=== PATIENT | male | born 1995 | race Hispanic/Latino ===

== ENCOUNTER 2017-09-26 22:50 | Emergency (ER) | payer SELFPAY ==
[2017-09-26] MEDS ORDERED: Ketorolac Tromethamine 30 MG/ML VIAL ONE (23:12)
== END 2017-09-26 23:20 | disposition home or self-care (01) ==
LOC: SCSER 22:50
DX: M10.9 Gout, unspecified (principal)
CPT/HCPCS: 96372; J1885

== ENCOUNTER 2017-10-24 12:24 | Emergency (ER) | payer SELFPAY ==
--- NOTE | 2017-10-24 13:40 | RAD ---
LEFT ELBOW 4 VIEWS: Date: 10/24/17 HISTORY: 22-year-old male with left elbow joint pain. History of gout. FINDINGS: There is evidence of an abnormal distended elbow joint effusion. No evidence for acute fracture or di slocation. No bony erosive or destructive changes. IMPRESSION: Abnormal distended elbow joint effusion. No evidence for fracture. If the patient has had recent trauma to the elbow accounting for the pain, an occult nonosseous injur y could certainly be considered. If the patient has persistent pain referable to the elbow, consider follow-up nonemergent elbow MRI for further assessment. POS: SANDRA
--- NOTE | 2017-10-24 13:41 | RAD ---
LEFT FOOT 3 VIEWS: Date: 10/24/17 COMPARISON: None. HISTORY: Left foot pain, history of gout. FINDINGS: There is dorsal degenerative change involving the midfoot with associated dorsal osteophyte formation . There is soft tissue swelling centered at the first metatarsophalangeal joint. No acute fracture or d islocation. IMPRESSION: Soft tissue swelling centered at the first metatarsophalangeal joint. These findings may signify arth ropathy associated with the patient's history of gout. No acute fracture or evidence of dislocation i s seen. POS: GRETCHEN
[2017-10-24] MEDS ORDERED: Colchicine 0.6 MG TAB PO SCH (13:45)
[2017-10-24] MEDS ORDERED: Ibuprofen 200 MG TAB ONE (13:47)
== END 2017-10-24 14:50 | disposition home or self-care (01) ==
LOC: ERS 12:24
DX: M10.022 Idiopathic gout, left elbow (principal); M10.072 Idiopathic gout, left ankle and foot

== ENCOUNTER 2017-10-25 22:35 | Emergency (ER) | payer SELFPAY ==
[2017-10-25] MEDS ORDERED: Morphine 4 MG/ML VIAL ONE (23:00)
[2017-10-25] MEDS ORDERED: Indomethacin 25 mg Capsule PO SCH (23:15)
[2017-10-25] MEDS ORDERED: Colchicine 0.6 MG TAB PO SCH (23:15)
[2017-10-25 23:22] LABS: #Basophils 0.1 thou/uL (0.0-0.2); #Eosinphils 0.2 thou/uL (0.0-0.7); #Lymphocytes 2.5 thou/uL (1.20-3.40); #Monocytes 0.7 thou/uL (0.11-0.59); #Neutrophils 9.1 thou/uL (1.40-6.50); %Basophils 0.5 % (0.0-1.0); %Eosinophils 1.3 % (0.0-10.0); %Lymphocytes 20.1 % (21.0-51.0); %Monocytes 5.6 % (0.0-10.0); Hematocrit 41.2 % (42.0-52.0); Mean Platelet Volume 7.5 fL (7.4-10.4); Red Blood Cell (RBC) Count 4.75 mill/uL (4.70-6.10); White Blood Cell (WBC) Count 12.6 thou/uL (4.8-10.8)
[2017-10-25 23:44] LABS: ALT (SGPT) 18 U/L (8-55); AST (SGOT) 25 U/L (5-34); Alkaline Phosphatase 68 U/L (40-150); Anion Gap 15 mmol/L (10-20); BUN (Urea Nitrogen) 15 mg/dL (8.9-20.6); Bilirubin, Total 0.4 mg/dL (0.2-1.2); Calc. Creatinine Clearance 0 mL/min (70-130); Calcium 9.7 mg/dL (7.8-10.44); Carbon Dioxide 25 mmol/L (22-29); Chloride 102 mmol/L (98-107); Estimated GFR-MDRD 86; Globulin 3.4 g/dL (2.4-3.5); Protein, Total 7.7 g/dL (6.0-8.3); Uric Acid 7.6 mg/dL (3.5-7.2)
[2017-10-26] MEDS ORDERED: predniSONE 20 MG TAB ONE (00:36)
== END 2017-10-26 01:09 | disposition home or self-care (01) ==
LOC: ERS 22:35
DX: M10.072 Idiopathic gout, left ankle and foot (principal); M10.022 Idiopathic gout, left elbow; Z79.899 Other long term (current) drug therapy
CPT/HCPCS: 36415; 80053; 84550; 85025; 85652; 86140; 96372; J2270; J7506

== ENCOUNTER 2018-01-18 01:07 | Emergency (ER) | payer SELFPAY | END 2018-01-18 02:19 | disposition left against medical advice (07) | LOC: ERS 01:07 | DX: Z53.21 Procedure and treatment not carried out due to patient leaving prior to being seen by health care provider (principal) ==

== ENCOUNTER 2018-01-21 23:44 | Emergency (ER) | payer SELFPAY ==
[2018-01-22] MEDS ORDERED: Ketorolac Tromethamine 60 MG/2 ML VIAL ONE (00:16)
[2018-01-22] MEDS ORDERED: Dexamethasone 10 MG/ML VIAL ONE (00:16)
== END 2018-01-22 00:28 | disposition home or self-care (01) ==
LOC: ERS 23:44
DX: M10.9 Gout, unspecified (principal); Z79.899 Other long term (current) drug therapy
CPT/HCPCS: 96372; J1100; J1885

== ENCOUNTER 2018-03-07 00:35 | Emergency (ER) | payer SELFPAY ==
[2018-03-07] MEDS ORDERED: Dexamethasone 4 MG TAB ONE (01:35)
== END 2018-03-07 01:40 | disposition home or self-care (01) ==
LOC: ERS 00:35
DX: M10.9 Gout, unspecified (principal); Z79.1 Long term (current) use of non-steroidal anti-inflammatories (NSAID)
CPT/HCPCS: 99283; J8540

== ENCOUNTER 2018-06-08 12:48 | Emergency (ER) | payer SELFPAY ==
[2018-06-08] MEDS ORDERED: Ketorolac Tromethamine 30 MG/ML VIAL ONE (13:47)
== END 2018-06-08 14:08 | disposition home or self-care (01) ==
LOC: ERS 12:48
DX: M10.9 Gout, unspecified (principal)
CPT/HCPCS: 96372; J1885

== ENCOUNTER 2019-06-26 00:26 | Emergency (ER) | payer SELFPAY ==
--- NOTE | 2019-06-26 07:47 | RAD ---
XR Knee Rt 4 View STANDARD HISTORY: Right knee pain FINDINGS: No fracture or dislocation is identified.
== END 2019-06-26 01:23 | disposition home or self-care (01) ==
LOC: ERS 00:26
DX: S83.91XA Sprain of unspecified site of right knee, initial encounter (principal); M10.9 Gout, unspecified; X50.9XXA Other and unspecified overexertion or strenuous movements or postures, initial encounter

== ENCOUNTER 2019-11-21 06:40 | Emergency (ER) | payer SELFPAY | END 2019-11-21 07:38 | disposition home or self-care (01) | LOC: ERS 06:40 | DX: M10.9 Gout, unspecified (principal) | CPT/HCPCS: 99283 ==

== ENCOUNTER 2019-11-21 09:12 | Emergency (ER) | payer SELFPAY ==
[2019-11-21] MEDS ORDERED: Ketorolac Tromethamine 60 MG/2 ML VIAL ONE (09:25)
== END 2019-11-21 10:00 | disposition home or self-care (01) ==
LOC: ERS 09:12
DX: M10.9 Gout, unspecified (principal)
CPT/HCPCS: 96372; 99283; J1885

== ENCOUNTER 2021-04-28 02:56 | Emergency (ER) | payer OTHER | END 2021-04-28 05:41 | disposition home or self-care (01) | LOC: ERS 02:56 | DX: T81.31XA Disruption of external operation (surgical) wound, not elsewhere classified, initial encounter (principal) ==

== ENCOUNTER 2021-05-04 07:59 | Emergency (ER) | payer OTHER ==
[2021-05-04] MEDS ORDERED: Ketorolac Tromethamine 30 MG/ML VIAL ONE (09:50)
== END 2021-05-04 10:10 | disposition home or self-care (01) ==
LOC: ERS 07:59
DX: T81.30XD Disruption of wound, unspecified, subsequent encounter (principal); M10.9 Gout, unspecified; Z79.899 Other long term (current) drug therapy
CPT/HCPCS: 96372; 99282; J1885

== ENCOUNTER 2021-07-29 06:56 | Emergency (ER) | payer OTHER | END 2021-07-29 08:55 | disposition home or self-care (01) | LOC: ERS 06:56 | DX: K62.5 Hemorrhage of anus and rectum (principal) | CPT/HCPCS: 99283 ==

== ENCOUNTER 2021-08-18 15:05 | Emergency (ER) | payer OTHER ==
[2021-08-18 16:10] LABS: #Basophils 0.1 thou/uL (0.0-0.2); #Eosinphils 0.3 thou/uL (0.0-0.7); #Lymphocytes 4.6 thou/uL (1.20-3.40); #Neutrophils 4.6 thou/uL (1.40-6.50); %Basophils 0.7 % (0.0-1.0); %Eosinophils 2.4 % (0.0-10.0); %Lymphocytes 43.9 % (21.0-51.0); %Monocytes 9.7 % (0.0-10.0); %Neutrophils 43.4 % (42.0-75.0); Mean Corpuscular HGB CONC 33.5 g/dL (32.0-36.0); Mean Corpuscular Volume 86.6 fL (78.0-98.0); Mean Platelet Volume 7.4 fL (7.4-10.4); Platelet Count 374 thou/uL (130-400); RBC Distribution Width 12.1 % (11.5-14.5); Red Blood Cell (RBC) Count 5.16 mill/uL (4.70-6.10); White Blood Cell (WBC) Count 10.6 thou/uL (4.8-10.8)
== END 2021-08-18 16:52 | disposition home or self-care (01) ==
LOC: ERS 15:05
DX: R60.0 Localized edema (principal); M10.9 Gout, unspecified; Z79.899 Other long term (current) drug therapy
CPT/HCPCS: 36415; 85025

== ENCOUNTER 2021-08-27 02:30 | Emergency (ER) | payer OTHER, SELFPAY ==
[2021-08-27] MEDS ORDERED: Lidocaine 1% PF 5 ML VIAL ONE (06:18)
[2021-08-27] MEDS ORDERED: Bupivacaine 0.5% 10 ML VIAL ONE ×2 (06:18→06:27)
[2021-08-27] MEDS ORDERED: Lidocaine 1% (PF) 30 ML VIAL ONE (06:27)
== END 2021-08-27 21:15 | disposition home or self-care (01) ==
LOC: ERS 02:30
DX: S62.616A Displaced fracture of proximal phalanx of right little finger, initial encounter for closed fracture (principal); M10.9 Gout, unspecified; Y04.8XXA Assault by other bodily force, initial encounter
CPT/HCPCS: 26725; J2001; J3490

== ENCOUNTER 2021-08-29 11:52 | Day surgery (SDC) | payer OTHER, SELFPAY ==
[2021-08-29] MEDS ORDERED: Fentanyl 250 MCG/5 ML VIAL ONE (12:47)
[2021-08-29] MEDS ORDERED: Midazolam HCl 5 mg/5 ml Vial ONE (12:47)
[2021-08-29] MEDS ORDERED: Fentanyl 100 MCG/2 ML VIAL ONE (12:48)
[2021-08-29] MEDS ORDERED: Midazolam HCl 2 mg/2 ml Vial ONE (12:48)
[2021-08-29] MEDS ORDERED: Bupivacaine 0.25% HCL 30 ML VIAL ONE (12:57)
[2021-08-29] MEDS ORDERED: Bupivacaine PF 0.5% 30 ML VIAL ONE (12:57)
[2021-08-29] MEDS ORDERED: Lidocaine 1% (PF) 30 ML VIAL ONE (12:57)
== END 2021-08-29 14:52 | disposition home or self-care (01) ==
LOC: SDC 11:52
PROVIDERS: ATTEND Surgery Surgery of the Hand
PROC: 0PST34Z Reposition Right Finger Phalanx with Internal Fixation Device, Percutaneous Approach (ICD-10-PCS; principal; 2021-08-29)
DX: S62.616A Displaced fracture of proximal phalanx of right little finger, initial encounter for closed fracture (principal); W19.XXXA Unspecified fall, initial encounter; Y09 Assault by unspecified means
CPT/HCPCS: 76000; 99152; 99153; J2001; J2250; J3010; S0020

== ENCOUNTER 2022-05-13 17:37 | Emergency (ER) | payer OTHER, SELFPAY ==
[2022-05-13] MEDS ORDERED: hydrOXYzine 25 MG TAB ONE (18:32)
== END 2022-05-13 19:03 | disposition home or self-care (01) ==
LOC: ERS 17:37
DX: R20.2 Paresthesia of skin (principal); I49.8 Other specified cardiac arrhythmias; M10.9 Gout, unspecified; Z79.899 Other long term (current) drug therapy
CPT/HCPCS: 93005